=== PATIENT | male | born 1965 | race Caucasian/White ===

== ENCOUNTER → 2017-06-22 | Outpatient (CLI) | payer OTHER | LOC: SUN.DIA 08:47 | DX: E10.40 Type 1 diabetes mellitus with diabetic neuropathy, unspecified (principal); Z79.4 Long term (current) use of insulin; I10 Essential (primary) hypertension; Z68.33 Body mass index [BMI] 33.0-33.9, adult; Z71.3 Dietary counseling and surveillance | CPT/HCPCS: G0108 ==

== ENCOUNTER → 2017-07-04 | Outpatient (CLI) | payer OTHER | LOC: SUN.DIA 08:51 | DX: E10.40 Type 1 diabetes mellitus with diabetic neuropathy, unspecified (principal); Z79.4 Long term (current) use of insulin; I10 Essential (primary) hypertension; Z68.32 Body mass index [BMI] 32.0-32.9, adult; Z71.3 Dietary counseling and surveillance | CPT/HCPCS: G0108 ==

== ENCOUNTER → 2017-09-12 | Outpatient (CLI) | payer OTHER | LOC: SUN.DIA 08-29 13:17 | DX: E10.40 Type 1 diabetes mellitus with diabetic neuropathy, unspecified (principal); Z79.4 Long term (current) use of insulin; I10 Essential (primary) hypertension; Z68.33 Body mass index [BMI] 33.0-33.9, adult; Z71.3 Dietary counseling and surveillance | CPT/HCPCS: G0108 ==

== ENCOUNTER 2017-10-10 07:39 | Day surgery (SDC) | payer OTHER ==
[~2017-10-10] VITALS: Ht 175.3 cm; Wt 102.4 kg
[2017-10-10] MEDS ORDERED: NOVOLOG 100U100 U/M1 SQ (07:59)
[2017-10-10] MEDS ORDERED: TRESIBA FL100 UNIT/1 SQ (07:59)
[2017-10-10] MEDS ORDERED: VITAMIND3 5000 PO (08:00)
[2017-10-10] MEDS ORDERED: BENICAR40 MG PO (08:00)
[2017-10-10] MEDS ORDERED: [UNRECOGNIZED DRUG - OTHER] PO (08:02)
[2017-10-10] MEDS ORDERED: [UNRECOGNIZED DRUG - OTHER] PO (08:03)
[2017-10-10 08:14] VITALS: BP 144/78; PULSE 110; TEMP 998.4
[2017-10-10 09:20] VITALS: BP 138/77; PULSE 100; TEMP 98.1
[2017-10-10 09:30] VITALS: BP 118/73; PULSE 94
[2017-10-10 09:45] VITALS: BP 113/72; PULSE 91
[2017-10-10 10:00] VITALS: BP 102/73; PULSE 90
== END 2017-10-10 10:37 | disposition home or self-care (01) ==
LOC: SDCO 07:39
DX: Z12.11 Encounter for screening for malignant neoplasm of colon (principal); D12.3 Benign neoplasm of transverse colon; K64.0 First degree hemorrhoids; E11.9 Type 2 diabetes mellitus without complications; I10 Essential (primary) hypertension; E78.00 Pure hypercholesterolemia, unspecified
CPT/HCPCS: OP; J2250; J2405; J3010; J7042